=== PATIENT | female | born 1980 | race Caucasian/White ===

== ENCOUNTER → 2019-10-12 12:09 | Outpatient (BNVA) | payer OTHER, SELFPAY | PROVIDERS: Family Provider Family Medicine; Visit Provider Family Medicine | DX: R50.9 Fever, unspecified (principal); J02.9 Acute pharyngitis, unspecified; J06.9 Acute upper respiratory infection, unspecified | CPT/HCPCS: 87071; 87400; 87635; 87880 ==

== ENCOUNTER → 2021-05-15 14:37 | Outpatient (BNVA) | payer OTHER, SELFPAY | PROVIDERS: Family Provider Family Medicine; Visit Provider Obstetrics & Gynecology | DX: Z30.9 Encounter for contraceptive management, unspecified (principal) | CPT/HCPCS: 81025 ==

== ENCOUNTER → 2021-08-28 12:20 | Outpatient (BNVA) | payer OTHER, SELFPAY | PROVIDERS: Family Provider Family Medicine; Visit Provider Nurse Practitioner Family | DX: R68.89 Other general symptoms and signs (principal) | CPT/HCPCS: 87400 ==

== ENCOUNTER → 2021-09-03 14:20 | Outpatient (BNVA) | payer OTHER, SELFPAY | PROVIDERS: Family Provider Family Medicine; Visit Provider Obstetrics & Gynecology | DX: Z30.9 Encounter for contraceptive management, unspecified (principal) | CPT/HCPCS: 81025 ==

== ENCOUNTER 2022-04-02 07:40 | Day surgery (SDC) | payer OTHER, SELFPAY ==
[2022-03-31 15:30] VITALS: BMI 41.3
[2022-04-02 08:09] VITALS: BP 135/91; PULSE 70; RESP 18; TEMP 36.4; O2SAT 98
[2022-04-02] MEDS: sodium chloride 0.9% 1,000 ML 30 ML IV (08:17)
[2022-04-02 08:25] LABS: OR HCG Qualitative Urine Negative (Negative)
--- NOTE | 2022-04-02 08:51 | ANES.PREANE2 ---
Pre-Anesthetic Assessment Height/Weight: Height 1.6 m Weight 105.687 kg Temp Pulse Resp BP Pulse Ox O2 Del Method 97.5 F L 70 18 135/91 98 04/02/22 08:09 04/02/22 08:09 04/02/22 08:09 04/02/22 08:09 04/02/22 08:09 04/02/22 08:09 Operation Date: 04/02/22 09:15 Proposed Procedures p EGD [id number],R10.13(Not Applicable) - Barrie Wasserman DO Familial anesthetic complications: NO hx anesthesia Was Beta Yuli taken within 24 hours: N/A Was Clonidine taken within 24 hours: N/A Last intake: Intake Last Liquid Date 04/01/22 Last Liquid Time 20:00 Last Solid Date 04/01/22 Last Solid Time 20:00 Social Tobacco and No alcohol Exam alert, oriented x 3, clear to auscultation bilaterally and regular rate & rhythm Airway Mallampati: Class I Dentition: full GI Gastroesophageal Reflux Disease Metabolic Morbid Obesity Neuropsych glaucoma Anesthetic Plan ASA status: 2 Anesthesia: MAC Risk of > 500 ml blood loss (7ml/kg in children): No Medications/Allergies Home Medications Medication Instructions Recorded Confirmed Last Taken Type levonorgestrel 20 mcg/24 hours (7 1 insert intrauterine .every 6 09/03/21 03/31/22 Unknown Rx yrs) 52 mg intrauterine device years #1 ea (Mirena) pantoprazole 40 mg tablet,delayed 40 mg PO BID 6 weeks #84 tabs 03/28/22 03/31/22 04/01/22 Rx release (Protonix) sucralfate 1 gram tablet (Carafate) 1 g PO BID #60 tabs 03/28/22 03/31/22 04/01/22 Rx Allergies Allergy/AdvReac Type Severity Reaction Status Date / Time No Known Allergies Allergy Verified 03/28/22 09:17 Current Medications Generic Name Dose Route Start Last Admin Trade Name Freq PRN Reason Stop Dose Admin Sodium Chloride 1,000 mls @ 30 mls/hr 04/02/22 08:00 04/02/22 08:17 Sodium Chloride 0.9% IV 04/03/22 07:59 30 mls/hr .Q24H MARIANELA Administration PFSH Anesthesia Medical History Glaucoma Diagnosed at the age of 22 and uses eyedrops followed by ophthalmology Dr. Reyes. She does not know if it is open angle or closed angle glaucoma No pertinent past medical history Denies diabetes, asthma, hypertension, seizures, DVT/PE PCP: Dr. Ludmila Lange Surgical History No history of previous surgery Family History Father Heart disease Diabetes Hyperlipidemia Sister Thyroid condition due to Hodgkin's Lymphoma Family/Other Stroke maternal aunt Denies family history of Colon cancer Ovarian cancer Breast cancer Uterine cancer Social History Smoking and tobacco status: current every day smoker (pack a day ) Female Reproductive History Spontaneous abortions: No Data Anesthesia Cardiac Studies: No Data to Display
--- NOTE | 2022-04-02 09:24 | W.PM.OPSUD ---
Surgery/Procedure H&P Update DATE OF PROCEDURE: April 02, 2022 DATE H&P PERFORMED: 03/28/22 PLANNED PROCEDURE: Operation Date: 04/02/22 09:15 Proposed Procedures p EGD [id number],R10.13(Not Applicable) - Barrie Wasserman DO
[2022-04-02 09:50] VITALS: BP 104/53; PULSE 66; RESP 16; TEMP 36.2; O2SAT 96
--- NOTE | 2022-04-02 09:54 | ANE.PACU2 ---
Inpatient post-anesthesia follow up: Airway intact: Yes Vital signs: Temperature 97.5 F Pulse Rate 70 Respiratory Rate 18 Blood Pressure 135/91 Pulse Oximetry 98 Oxygen Delivery Me thod Room Air Oxygen Flow Rate Fraction of Inspir ed Oxygen Hydration adequate: Yes Nausea and vomiting: No Pain level: 1 Mental status: Baseline
[2022-04-02 10:02] VITALS: BP 124/50; PULSE 70; RESP 16; O2SAT 94
[2022-04-02 10:09] VITALS: BP 124/82; PULSE 59; RESP 16; O2SAT 99
--- NOTE | 2022-04-02 15:05 | ANE.PACU2 ---
Inpatient post-anesthesia follow up: Airway intact: Yes Vital signs: Temperature 97.1 F Pulse Rate 59 Respiratory Rate 16 Blood Pressure 124/82 Pulse Oximetry 99 Oxygen Delivery Me thod Room Air Oxygen Flow Rate 3 Fraction of Inspir ed Oxygen Hydration adequate: Yes Nausea and vomiting: No Pain level: 1 Mental status: Baseline
== END 2022-04-02 10:20 | disposition home or self-care (01) ==
PROVIDERS: Anesthesiology; PCP Family Medicine; Visit Provider Surgery
PROC: 0DJ08ZZ Inspection of Upper Intestinal Tract, Via Natural or Artificial Opening Endoscopic (ICD-10-PCS; CPT 43235; principal; 2022-04-02 09:15)
DX: R10.13 Epigastric pain (principal); K29.70 Gastritis, unspecified, without bleeding; K21.9 Gastro-esophageal reflux disease without esophagitis; E66.01 Morbid (severe) obesity due to excess calories; Z68.41 Body mass index [BMI] 40.0-44.9, adult
CPT/HCPCS: 43239; 81025; 84703; 88305; J2704; J7030

== ENCOUNTER 2022-05-14 08:34 | Outpatient (CLI) | payer OTHER, SELFPAY ==
--- NOTE | 2022-05-14 08:39 | US_ITS ---
WS: [id number] RIGHT UPPER QUADRANT ULTRASOUND HISTORY: EPIGASTRIC PAIN, GERD Worsening, abd PAIN COMPARISON: None available. Liver: 18.1 cm in length. Very slightly enlarged liver. Otherwise normal. No bile duct dilatation. No mass. Portal Vein: Normal hepatopetal flow with monophasic waveform. Gallbladder: Normally distended gallbladder with no stones or wall thickening. CBD: 0.2 cm Pancreas: Normal size and echogenicity. Right kidney: 10.1 cm in length. Normal size and echogenicity. No hydronephrosis or mass. Aorta and IVC: Unremarkable abdominal aorta and IVC. No ascites. US/US abdomen limited [id number] IMPRESSION: Mild hepatomegaly. Otherwise RIGHT upper quadrant is negative.
== END 2022-05-14 08:35 | disposition home or self-care (01) ==
LOC: RAD 08:34
PROVIDERS: PCP Family Medicine; Visit Provider Family Medicine
DX: R10.9 Unspecified abdominal pain (principal); K21.9 Gastro-esophageal reflux disease without esophagitis; R16.0 Hepatomegaly, not elsewhere classified
CPT/HCPCS: 76705

== ENCOUNTER 2023-04-20 12:30 | Outpatient (CLI) | payer OTHER, SELFPAY ==
--- NOTE | 2023-04-20 12:39 | ECG_ITS ---
[facility] Test Date: 2023-04-20 Pat Name: Verito Vega Department: Room: Gender: Female Motel Maid: Natalie Benavides : 1980 Requested By: Ludmila Gaspar Order Number: [id number] Arnold MD: Benjamin Katz M.D. Interpretive Statements NAME OF STUDY: TREADMILL STRESS TEST INDICATION: [Chest Pain, ] EXERCISE DATA: The patient was exercised by Zack protocol. Baseline heart rate was 73 beats per minute. Baseline blood pressure was 113/72 millimeters of mercury. Target heart rate was 152 beats per minute. Maximum heart rate achieved was 158 which was 103% of the target heart rate. Maximum blood pressure was 170/99 millimeters of mercury. Total exercise time was 7 minutes. Maximum METs achieved was 10.2. The reason for ending the test was maximal effort achieved. The patient complained of shortness of breath during the stress test, which then resolved at the end of the test. ELECTROCARDIOGRAM: BASELINE: Showed sinus rhythm, normal axis, no significant ST-T changes at the baseline noted. [] EXERCISE: At the peak exercise level, [] No significant ST-T changes suggestive of ischemia noted. [] RECOVERY: During the recovery period, heart rate dropped appropriately. No significant ST-T changes in the recovery suggestive of ischemia noted. [] CONCLUSION: 1. Exercise capacity is fair 2. Heart rate response was appropriate 3. Blood pressure response was appropriate 4. Symptoms not suggestive of ischemia. 5. Stress test is negative for ischemia Electronically Signed On 04-28-2023 11:20:07 CDT by Benjamin Kazt M.D. [email or web address]
[2023-04-20 12:45] VITALS: BP 123/71; PULSE 93; BMI 39.4
== END 2023-04-20 12:31 | disposition home or self-care (01) ==
PROVIDERS: PCP Family Medicine; Visit Provider Family Medicine
DX: R07.9 Chest pain, unspecified (principal)
CPT/HCPCS: 93017

== ENCOUNTER → 2023-11-02 16:37 | Outpatient (BNVA) | payer OTHER, SELFPAY | PROVIDERS: PCP Family Medicine; Visit Provider Nurse Practitioner | DX: R09.81 Nasal congestion (principal) | CPT/HCPCS: 87400 ==

== ENCOUNTER 2023-12-18 11:45 | Outpatient (CLI) | payer OTHER, SELFPAY ==
--- NOTE | 2023-12-18 11:50 | MM_ITS ---
WS: [id number] BILATERAL 3D TOMOSYNTHESIS DIGITAL SCREENING MAMMOGRAPHY WITH CAD CLINICAL INFORMATION: SCREENING HISTORY: Screening mammogram. No current complaints. COMPARISON: Baseline TECHNIQUE: Bilateral CC and MLO views. FINDINGS: The breasts are composed of heterogeneous fibroglandular density tissue, which can limit the detectio n of small underlying mass lesions. Dense breast tissue upper outer breast bilaterally. Ovoid nodules near the 12 o'clock position RIGHT breast and outer RIGHT breast. These are indeterminant and recomm end RIGHT breast diagnostic mammography and ultrasound in further evaluation. LEFT breast is unremarkable. MM/[place] [id number] IMPRESSION: BI-RADS: 0-Incomplete: Need additional imaging evaluation FOLLOW UP: Need Additional Imaging RIGHT breast diagnostic mammography and ultrasound recommended
== END 2023-12-18 11:46 | disposition home or self-care (01) ==
PROVIDERS: PCP Family Medicine; Visit Provider Family Medicine
DX: Z12.31 Encounter for screening mammogram for malignant neoplasm of breast (principal); R92.323 Mammographic fibroglandular density, bilateral breasts; R92.333 Mammographic heterogeneous density, bilateral breasts; N63.15 Unspecified lump in the right breast, overlapping quadrants; N63.10 Unspecified lump in the right breast, unspecified quadrant
CPT/HCPCS: 77063; 77067

== ENCOUNTER 2024-01-21 14:47 | Outpatient (CLI) | payer OTHER, SELFPAY ==
--- NOTE | 2024-01-21 14:54 | MM_ITS ---
WS: [id number] RIGHT 3D TOMOSYNTHESIS DIGITAL MAMMOGRAPHY WITH CAD CLINICAL INFORMATION: ABNORMAL MAMMOGRAM HISTORY: Additional views COMPARISON: 12/18/2023 TECHNIQUE: 3 views of the right breast were obtained. FINDINGS: The right breast is composed of heterogeneous fibroglandular density tissue, which can limit the dete ction of small underlying mass lesions. Again seen are multiple indeterminant ovoid nodules near the 12 o'clock position and upper outer RIGHT breast. Ultrasound is pending. ULTRASOUND BREAST RIGHT TECHNIQUE: Ultrasound right breast focused area of concern. CLINICAL INFORMATION: ABNORMAL MAMMOGRAM FINDINGS: Ultrasound RIGHT breast upper outer quadrant. Simple cyst and complex cyst in the upper outer quadran t. Dense underlying parenchymal tissue. Simple cyst at the 10 o'clock position 5 cm from the nipple m easuring 6 x7 mm. Complex cyst at the 12 o'clock position 5 cm from the nipple measuring 13 x 11 mm. No suspicious findings to target for biopsy. Findings are benign. MM/[place] [id number] IMPRESSION: BI-RADS: 2-Benign FOLLOW UP: 1 Year Follow-up Recommend return to annual screening mammography.
== END 2024-01-21 14:48 | disposition home or self-care (01) ==
LOC: RAD 14:48
PROVIDERS: PCP Family Medicine; Visit Provider Family Medicine
DX: R92.8 Other abnormal and inconclusive findings on diagnostic imaging of breast (principal); R92.333 Mammographic heterogeneous density, bilateral breasts; N63.11 Unspecified lump in the right breast, upper outer quadrant
CPT/HCPCS: 76642; 77061; G0279